=== PATIENT | male | born 2000 | race Caucasian/White ===

== ENCOUNTER 2019-12-31 02:43 | Emergency (ER) | payer OTHER ==
[~2019-12-31] VITALS: Ht 182.9 cm; Wt 65.8 kg
--- NOTE | 2019-12-31 02:47 | NUR ---
BIBS FOR C/O SOB X 1 DAY. AFEBRILE. - COUGH SATING AT 100% ON ROOM AIR
--- NOTE | 2019-12-31 03:07 | NUR ---
XRAY AT BEDSIDE
--- NOTE | 2019-12-31 03:09 | NUR ---
X RAY AT THE BED SIDE
[2019-12-31 03:36] VITALS: BP 156/93
--- NOTE | 2019-12-31 03:36 | NUR ---
Patient discharged to home in stable condition. Written and verbal after care instructions given. Patient verbalizes understanding of instruction.
== END 2019-12-31 03:37 | disposition home or self-care (01) ==
LOC: ER 02:43
DX: R06.00 Dyspnea, unspecified (principal)
CPT/HCPCS: 71045-TC